=== PATIENT | female | born 1965 | race Caucasian/White ===

== ENCOUNTER 2025-10-11 07:43 | Emergency (ER) | payer MEDICAID, SELFPAY ==
--- OUTSIDE RECORDS SUMMARY | 2003-07-13 09:00 | XMS_ITS | Continuity of Care Document ---
Author Organization [facility] Address [address] [address] [place] [address] Phone Care Team Providers Care Refrigeration Mechanic Name Role Phone Unavailable Unavailable Unavailable Advance Directives Directive Yes / No Effective Date File Name No Information Encounters Encounter Description Practice Location Reason(s) For Visit Diagnoses Date Provider Providers Copied on Encounter [facility], [address] [address], [place], [place], [id number], [place] tel:[phone] [facility] No Information Jun-2 5200 3 No Information Referring Provider: Graham Mayorga MD, [address], [place], [address]. tel:[phone] Family History Family Member Type Diagnosis Age At Onset No Information Payers Payer name Insurance type Covered constitution party ID Authoriza tibelinda(s) [facility] [id number] Social History Type Description Quantity Date Captured Comments Sex Male Smoking Status No Information Chief Complaint And Reason For Visit No Information Reason For Referral Reason For Referral No Information History Of Present Illness Encounter Date Complaint History Of Prese nt Illness No Information Functional Status Date Functional Assessmen t No Information Instructions Date Instruction Additional Infor mation No Information Assessments Type Assessment Date No Information Patient Care Teams Name Effective Dates (start - stop) Status Members No Information
--- OUTSIDE RECORDS SUMMARY | 2025-10-11 07:46 | XMS_ITS | Clinical Summary ---
Author Organization [facility] Address [address] [place] [address] Care Team Providers Care Furniture Duster Name Role Phone Pcp, No Primary Care Provider Unavailabl e Allergies No known active allergies Medications MedicationSigDispense QuantityRefillsLast FilledStart DateEnd DateStatus buPROPion 300 mg Extended-Release tablet Take 300 mg by mouth once daily in the morning.05/02/2021ctive hydroCHLOROthiazide 12.5 mg capsule Take 12.5 mg by mouth once daily in the morning.06/06/2021ctive Magnesium Gluconate 30 mg (550 mg) tab Take 30 mg by mouth once daily if needed (occasion).Active vitamin D3/vitamin K2 (MK4) (K2 PLUS D3 ORAL) Take by mouth.Active semaglutide 1 mg/dose (4 mg/3 mL) subcutaneous pen Indications:Class 3 severe obesity with body mass index (BMI) of 40.0 to 44.9 in adult, unspecified obesity type, unspecified whether serious comorbidity present (HC)Inject 1 mg subcutaneous once weekly.5Active Active Problems ProblemNoted DateDiagnosed DateElevated blood pressure reading without diagnosis of ltqpuroguoia46/01/2025lass 3 severe obesity with body mass index (BMI) of 40.0 to 44.9 in adult01/17/2025 Encounters DateTypeDepartmentCare LalwAvmlsxxqibq07/22/2025 4:20 PM CSTAncillary Procedure [facility] [id number] [place] [phone] Tzsyygx6010/09/2025 1:55 PM CSTOffice Visit [facility] [id number] [place] [phone] Sandy Nelson, DEVAN Fall; Chest Injury (rib )10/09/2025Travelfrom Last 3 Months Immunizations ImmunizationAdministration DatesNext DueInfluenza, WMR80811/06/2020,08/24/2018, 09/05/2015Tdap12/06/2021,06/13/2011 Family History Medical HistoryRelationNameCommentsHypertensionBrother 1ScottNephrolithiasis Brother 2TroyFibromyalgiaDaughterCancerFatherbladderStrokeFatherCancerMaternal GrandfatherCancerMaternal GrandmotherDiabetesMotherHypertensionMother PancreatitisMotherStrokeMotherEmphysemaPaternal Nbkwxssgxsa33yJmggi attack Paternal Fpcswtmfilp89tOnci HealthSonRelationNameStatusCommentsBrother 1Scott AliveBrother 2TroyAliveDaughterAliveFatherDeceasedMaternal GrandfatherDeceased Maternal GrandmotherDeceasedMotherDeceasedPaternal GrandfatherDeceasedPaternal GrandmotherDeceasedSonAlive Social History Tobacco UseTypesPacks/DayYears UsedDateSmoking Tobacco: NeverSmokeless Tobacco: Never Tobacco Cessation:Counseling Given: Not Answered Alcohol UseStandard Drinks/WeekCommentsNot Currently0 (1 standard drink = 0.6 oz pure alcohol)2 per monthPHQ-2AnswerDate RecordedPHQ-2 TOTAL LUAVK271 Social ConnectionsAnswerDate RecordedDo you often feel lonely or isolated from those around you?Financial Resource StrainAnswerDate Recorded Difficulty of Paying Living Qnhdgihp618/01/2025Difficulty of Paying Living ExpensesNot on file01/17/2025Food InsecurityAnswerDate RecordedDo you worry your food will run out before you are able to buy more?Transportation NeedsAnswerDate RecordedDoes lack of transportation keep you from medical appointments?Does lack of transportation keep you from work, meetings or getting things that you need?Housing StabilityAnswerDate Recorded What is your housing situation today?UtilitiesAnswerDate RecordedDo you have trouble paying for utilities (for example, heat, electricity, water, phone)?CommentsNoSex and Gender InformationValueDate Recorded Sex Assigned at BirthNot on fileLegal RmgCatioi44/14/2013 6:30 AM CSTGender IdentityNot on fileSexual OrientationNot on fileOccupationIndustryJob Start Date Job End DateParalegalNot on fileNot on fileNot on file Last Filed Vital Signs Vital SignReadingTime TakenCommentsBlood Ombmawjx349/7710/09/2025 3:31 PM CAREER DEVELOPMENT ENGINEER Oulmg452110/09/2025 3:31 PM YFECyjqtyyjwqt79.6 ??C (97.8 ??F)10/09/2025 3:31 PM CSTRespiratory Rate--Oxygen Uianmxflav80%10/09/2025 3:31 PM CSTInhaled Oxygen Concentration--Rokryv391.6 kg (223 lb 14.4 oz)01/17/2025 9:14 AM LUYPgyyxg326.5 cm (5' 0.43)01/17/2025 9:14 AM CDTBody Mass Index43. 9:14 AM CDT Plan of Treatment Health MaintenanceDue DateLast DoneCommentsHIV for age 15-65011/14/1979Hepatitis C screening for age 18-7911/14/1982Pneumococcal series for age 50+ (1 of 1 - PCV)2014RSV vaccine for adults or (1 - Risk 50-74 years 1-dose series)2014Zoster (shingles) series for age 50+ (1 of 2)2014 Mammogram for age 40- (Verified in Care Everywhere or Patient Record)COVID-19 vaccine series ( - 2024- season)/11/2020, 01/24/2021, 12/27/2020Influenza Vaccine (#1)/, 08/24/2018, 09/05/2015BMI (ht and wt on same day) for age 18+Depression screening for age 12+, 01/17/2025Lipids for age 45-75 Tetanus /, 06/13/2011Colonoscopy through age 7506///, 01/17/2015 (Verified in Care Everywhere or Patient Record)Hepatitis B series for 19+Aged OutNo longer eligible based on patient's age to complete this topicPap test for age 21-65Discontinued Procedures Procedure NamePriorityDate/TimeAssociated DiagnosisCommentsXR RIBS BILATERAL AND CHEST MINIMUM 4 ACMJKIWNA23/22/2025 4:39 PM CAREER DEVELOPMENT ENGINEER Rib pain, bilateral anterior Accidental fall, initial encounter SCAN-QSEABGIFBAY05/16/2025 2:30 PM CDT LIPID PANEL W REFLEX MEASURED UXBRpljfbm93/01/2025 10:03 AM CDT Screening for cholesterol level from Last 3 Months or Most Recently Relevant to Health Maintenance Results * XR RIBS BILATERAL AND CHEST MINIMUM 4 VIEWS (10/09/2025 4:39 PM CAREER DEVELOPMENT ENGINEER)Anatomical RegionLateralityModalityRIBS, CHEST, RIBS L, RIBS RComputed Radiography Specimen (Source)Anatomical Location / LateralityCollection Method / Volume Collection TimeReceived Time10/09/2025 4:39 PM CAREER DEVELOPMENT ENGINEER Impressions 10/09/2025 4:53 PM CAREER DEVELOPMENT ENGINEER No acute, displaced rib fractures are evident. Heart size is normal. No pneumothorax. Some streaky curvilinear opacity in the left lung base most likely reflects some subsegmental atelectasis. There are degenerative changes in the spine. Narrative 10/09/2025 4:53 PM CAREER DEVELOPMENT ENGINEER For Patients: As a result of the Cures Act, medical imaging exams and procedure reports are released immediately into your electronic medical record. You may view this report before your referring provider. If you have questions, please contact your health care provider. EXAM: XR RIBS BILATERAL AND CHEST MINIMUM 4 VIEWS LOCATION: [facility] DATE: 10/09/2025 INDICATION: Rib Pain Accidental Fall, Initial Encounter COMPARISON: 05/14/2016. Procedure Note Anand Marx MD - 10/09/2025 For Patients: As a result of the Cures Act, medical imagingexams and procedure reports are released immediately into your electronicmedical record. You may view this report before your referring provider.If you have questions, please contact your health care provider. EXAM: XR RIBS BILATERAL AND CHEST MINIMUM 4 VIEWS LOCATION: [facility] DATE: 10/09/2025 INDICATION: Rib Pain Accidental Fall, Initial Encounter COMPARISON: 05/14/2016. IMPRESSION: No acute, displaced rib fractures are evident. Heart size is normal. No pneumothorax. Some streaky curvilinear opacity in the left lung base mostlikely reflects some subsegmental atelectasis. There are degenerativechanges in the spine. Authorizing ProviderResult TypeResult StatusRecristal Nelson NPGENERAL IMAGINGFinal Result * SCAN-COLONOSCOPY (04/03/2025 2:30 PM CDT) Narrative Procedure Note Rey Campa MD - 04/03/2025 1:48 PM CDT [facility] [address], [address], [place] [id number] Patient Name: Nunu Melgar Gender: Female Exam Date: 04/03/2025 Visit Number: [id number] Age: 59 Years Date of : 1965 Attending MD: Rey Campa MD Medical Record#: [id number] Procedure: Colonoscopy Indications: Colorectal cancer screening Referring MD: Referral Self Primary MD: Arun Sanders PAC Medications: Admitting Medications: 0.9% Normal Saline at O Intra Procedure Medications: Patient received monitored anesthesia care. No IV medications given during procedure. Complications: No immediate complications Procedure: An examination of the heart and lungs was performed and found to be within acceptable limits. . The patient was therefore deemed a reasonablecandidate for endoscopy and sedation. The risks and benefits of the procedure were explained to the patient.After obtaining informed consent, I passed the scope without difficultyvia the rectum to the ileum. The appendiceal orifice and ic valve wereidentified. The scope was retroflexed during the examination The qualityof the prep was excellent (Miralax/Gatorade/2 tablets Bisacodyl/MagnesiumCitrate). This was a complete examination throughout the entire colon. Findings: ?? Normal finding. Location - ileum. ?? There was a patch of inflammation around 35-40 cm in the sigmoid colon. Characterized by erythema and two aphthous ulcers; the inflammation wasalong one wall of the colon only. Biopsies obtained with cold forceps forhistology. ?? Diverticulosis. Location: - sigmoid. Description: moderate. Remainder of the exam is normal. Impression: Colon cancer screening Sigmoiditis MD impression comments: The patch of inflammation appeared most likeischemic colitis which can happen with bowel prep. Preliminary Plan: The patient and their physician will receive a copy of the pathologyreport as well as pathology-based recommendations for future screening orsurveillance. Pathology Results: A: COLON, SIGMOID, BIOPSY: 1. Colonic mucosa with ischemic injury, possibly related to bowelpreparation (see comment) 2. Negative for chronic and microscopic colitis COMMENTS A. The colon biopsy shows ischemic changes. The differential diagnosis of ischemic colon injury includes true ischemia (e.g. vascular disease, low perfusion states etc.), bacterial infections (Clostridium difficile,verotoxin- producing bacteria), coagulation disorders or less commonlydrugs ( control pills, Amphetamines, etc). This particular case appears to be associated with no colon symptomssuggesting the possibility of changes secondary to bowel preparation, asbowel preparation (particularly with high dose Bisacodyl) has been hasbeen associated with an ischemic pattern of injury (Manny Washburn, RAD Reina, Gastrointestinal Endoscopy January 2009, Vol. 69, Issue5, Page JE956). Please correlate closely with clinical findings. MICROSCOPIC A: Performed Electronically signed by: Leonel Garcia MD Interpreted at [facility], [address], [place] [address] Orders Instruction(s)/Education: Instruction/Education Timeframe Assessment Colon Cancer Prevention Z12.11 Colon Cancer Prevention Z12.11 Final Plan: Repeat colonoscopy in 10 years for screening. If you have signs orsymptoms of lower GI illness or a new diagnosis of colon cancer in animmediate family member, you should contact [facility] or your primary providerto discuss whether your next exam should be repeated sooner. We will attempt to contact you at appropriate intervals via U.S. mail. Wemay not be able to find you or contact you at that time, therefore youshould know that the responsibility for following our recommendation restswith you. If you don't hear from us at the time your procedure is due,please contact our office to schedule an appointment. If your contactinformation should change, please contact our office so that we can updateyour record. Additional Comments: Dear Nunu, your biopsies do show an ischemic injury appearance - thiscan happen in the setting of bowel preparation, rarely. If you areasymptomatic then it is nothing to worry about. If you do have anysymptoms please feel free to call. Otherwise repeat colonoscopy in 10years. _Electronically signed by: Rey Campa MD 04/03/2025 cc: Arun Sanders PAC Authorizing ProviderResult TypeResult StatusGregbobbi Campa MDOTHERFinal Result * (ABNORMAL) LIPID PANEL W REFLEX MEASURED LDL (01/17/2025 10:03 AM CDT) ComponentValueRef RangeTest MethodAnalysis TimePerformed AtPathologist SignatureCHOLESTEROL, LSVOQ539<200 mg/dLQuest SeaMicro-Parascale DaleHDL RRFJDEVUXEM34> OR = 50 mg/dLQuest Diagnostics-[facility] YqspGKKLWIALPYKJX89<150 mg/dLQuest Sea[facility] DaleLDL-ZSACOSBGSLE282(H)mg/dL (calc)[facility]-Parascale DaleComment: Reference range: <100 Desirable range <100 mg/dL for primary prevention; <70 mg/dL for patients with CHD or diabetic patients with > or = 2 CHD risk factors. LDL-C is now calculated using the Efren-Kendall calculation, which is a validated novel method providing better accuracy than the Friedewald equation in the estimation of LDL-C. Efren SS et al. EVA. 2013;310(19): 2306-7595 (http://education.Submitnet/faq/MAZ282) CHOL/HDLC RATIO3.0<5.0 (calc)[facility]-Jah BendereNON HDL EBLZRGLPSPJ971 <130 mg/dL (calc)[facility]-[place] NapoleoneComment: For patients with diabetes plus 1 major ASCVD risk factor, treating to a non-HDL-C goal of <100 mg/dL (LDL-C of <70 mg/dL) is considered a therapeutic option. Specimen (Source)Anatomical Location / LateralityCollection Method / Volume Collection TimeReceived TimeBloodBLOOD SPECIMEN / Ybhhhdl6201/17/2025 10:03 AM CDT 01/17/2025 10:04 AM CDT Narrative Authorizing ProviderResult TypeResult StatusRobbin [facility] PACHEMISTRYFinal ResultPerforming OrganizationAddressCity/State/ZIP CodePhone Number [facility] [address] [place] [address], [facility] [address] [place] [address] from Last 3 Months or Most Recently Relevant to Health Maintenance Insurance Care Teams Team MemberRelationshipSpecialtyStart DateEnd Date Pcp, No PCP - General12/27/14
[2025-10-11 07:51] VITALS: BP 163/83; PULSE 66; RESP 22; TEMP 36.3; O2SAT 98
--- NOTE | 2025-10-11 07:59 | CRLHL7_ITS ---
For Patients: As a result of the Cures Act, medical imaging exams and procedure reports are released immediately into your electronic medical record. You may view this report before your referring provider. If you have questions, please contact your health care provider. INDICATION: Chest pain. Fall. COMPARISON: None TECHNIQUE: PA and lateral views of the chest were acquired FINDINGS: TUBES AND LINES: None. HEART AND MEDIASTINUM: The heart size is normal. The mediastinal contour appears normal for patient age. LUNGS AND PLEURAL SPACES: The lungs appear normal.The pleural spaces are unremarkable. OSSEOUS STRUCTURES: Age-appropriate appearance. No acute focal finding. IMPRESSION: No evidence of active pulmonary disease. No visible acute posttraumatic findings by plain film. Dictated by Haim Rod MD @ 10/11/2025 8:25:35 AM (Electronically Signed)
--- NOTE | 2025-10-11 08:22 | ED_ITS ---
HPI - Chest Pain General Date Seen: 10/11/25 Chief Complaint: Chest Pain Stated Complaint: Fell, L chest pain feels bubbling and pain Time Seen by Provider: 10/11/25 08:22 Source: patient, family and RN notes reviewed Mode of arrival: ambulatory Limitations: no limitations History of Present Illness HPI narrative: Nunu is a very pleasant 59-year-old female previously healthy not currently on blood thinners who comes to the emergency room for chest pain difficulty breathing related to a fall on ThursdayOctober 07. Patient notes that she was in her house fell over a dog and fell onto the floor under her chest. She had pain in her anterior chest left anterior chest become gradually worse and today is associated with significant spasm discomfort and difficulty breathing. She even describes a ?bubbling? feeling which she tries to take a deep breath. She denies any hemoptysis, unusual cough. She denies any head injury neck pain abdominal pain vomiting at this time. She has not had fever or chills. She has not noticed any ecchymosis on her chest. She feels like her anterior chest or sternum as the point of most tenderness. Patient did have plain x-rays earlier in the week at Urgent Care which were reassuring. Related Data Previous Rx's ?Medication ?Instructions ?Recorded cyclobenzaprine 10 mg tablet 10 mg PO TID PRN muscle s pasm #30 10/11/25 tabs hydrocodone 5 mg-acetaminophen 325 1 tab PO Q4-6H PRN pain #10 tabs 10/11/25 mg tablet Allergies Allergy/AdvReac Type Severity Reaction Status Date / Time No Known Drug Allergies Allergy Verified 10/11/25 09:24 Review of Systems Status of ROS Reports: 10 or more systems reviewed and unremarkable except as noted in History and below Const Denies: fever or chills ENMT Denies: neck pain or nasal congestion Cardio Reports: chest pain and shortness of breath with exertion; Denies: lightheadedness Resp Reports: shortness of breath; Denies: cough GI Denies: abdominal pain, nausea or vomiting Denies: painful urination Musculo Denies: neck pain Integ/Breast Denies: redness, skin pain, skin tenderness or sores Neuro Denies: headache Exam Narrative Exam Narrative: Alert and oriented. Very guarded in movement. Shallow respirations. Head is atraumatic normocephalic. Face symmetrical. Speech mentation is normal. Heart with a regular rate and rhythm and decreased breath sounds in the left lower lung base. I do not auscultate crackles. Again patient very breathing very shallowly. Soft nontender. Specifically area of left upper quadrant. Lower extremities with 1+ peripheral edema moving extremities without difficulty. Const Vital Signs, click to edit/add: Vital Signs - 24 hr 10/11/25 07:51 Temperature 97.4 F L Pulse Rate [Right Pulse Oximeter] 66 Respiratory Rate 22 Blood Pressure [Right Forearm] 163/83 H Pulse Oximetry 98 Oxygen Delivery Method Room Air Documenting provider has reviewed patient's vital signs: yes Course Course ED Course: Differential diagnosis includes but is not limited to pulmonary contusion, sternal fracture, rib fracture, costochondral injury, pneumonia, pneumothorax. X-ray ordered by our staff earlier do not show any obvious fractures. Considering the level of discomfort, difficulty breathing I do think patient is at risk for occult fracture or sternal injury. Thus will order CT of the chest with IV contrast. Will place an IV give morphine 4 mg Zofran 4 mg for discomfort. In addition will check CBC and basic. If patient is noted to have sternal fracture will also at EKG. Reevaluation(s) Reevaluation #1: Patient noted continued pain after morphine and thus did give her Toradol 15 mg IV. It appears that a lot of her discomfort is coming from spasm and therefore will also give her Valium 5 mg IV. Vital Signs Vital signs: Initial Vital Signs Temperature 97.4 F L 10/11/25 07:51 Temperature Source Temporal Artery Scan 10/11/25 07:51 Pulse Rate 66 10/11/25 07:51 Pulse Rhythm Regular 10/11/25 07:51 Pulse Strength 3+ Normal 10/11/25 07:51 Respiratory Rate 22 10/11/25 07:51 Blood Pressure 163/83 H 10/11/25 07:51 Blood Pressure Mean 109 H 10/11/25 07:51 Blood Pressure Position Sitting 10/11/25 07:51 Pulse Oximetry 98 10/11/25 07:51 Oxygen Delivery Method Room Air 10/11/25 07:51 Vital Signs Temperature 97.4 F L 10/11/25 07:51 Pulse Rate 66 10/11/25 07:51 Respiratory Rate 22 10/11/25 07:51 Blood Pressure 163/83 H 10/11/25 07:51 Pulse Oximetry 98 10/11/25 07:51 Oxygen Delivery Method Room Air 10/11/25 07:51 Temperature 97.4 F L 10/11/25 07:51 Pulse Rate 66 10/11/25 07:51 Respiratory Rate 22 10/11/25 07:51 Blood Pressure 163/83 H 10/11/25 07:51 Pulse Oximetry 98 10/11/25 07:51 Oxygen Delivery Method Room Air 10/11/25 07:51 Medications Administered Medications: Discontinued Medications Generic Name Dose Route Start Last Admin Trade Name Lucie PRN Reason Stop Dose Admin Sodium Chloride 1,000 mls @ 1,000 mls/hr 10/11/25 08:29 10/11/25 08:52 0.9 % Sodium Chloride 1000 Ml IV 10/11/25 09:28 1,000 mls/hr .Q1H SUZI Administration Ketorolac Tromethamine 15 mg 10/11/25 09:24 10/11/25 09:35 Ketorolac 15 Mg/Ml Inj IVP 10/11/25 09:25 15 mg ONCE ONE Administration Morphine Sulfate 4 mg 10/11/25 08:28 10/11/25 08:51 Morphine 4 Mg/Ml Inj IVP 10/11/25 08:29 4 mg ONCE ONE Administration Ondansetron HCl 4 mg 10/11/25 08:28 10/11/25 08:51 Ondansetron 2 Mg/Ml Inj IVP 10/11/25 08:29 4 mg ONCE ONE Administration MDM - Chest Pain MDM Narrative Medical decision making narrative: 1. Single rib fracture-patient is noted to have a subtle fracture of the 7th anterior rib. No underlying pulmonary contusion or pneumothorax. Patient received morphine and Toradol in the ED. I think she is mostly having muscular spasm so the will treat now with Valium 5 mg IV. Patient will be discharged home with suggestion for continued use of ibuprofen. Will use Flexeril 10 mg p.o. t.i.d. for spasm. Will also give her a few tablets of [place] 5/325 1-2 q.4- 6 hours p.r.n. pain 10. With no refills from instant meds. Recommend deep breathing as much as possible. Return for fever cough chills and as needed. 2. Disposition-home at this time. Seek medical attention for worsening symptoms. Medical Records Data Attestation: I reviewed the patient's medical records. Lab Data Attestation: I reviewed the patient's lab results. Labs: Lab Results 10/11/25 10/11/25 10/11/25 Range/Units 08:48 08:49 09:25 WBC 5.02 (4.50-11.00) K/uL RBC 4.59 (4.00-5.20) m/uL Hgb 13.1 (12.0-16.0) gm/dL Hct 40.2 (33.0-51.0) % MCV 88 (80-100) fL MCH 29 (26-34) pg MCHC 33 (32-36) gm/dL RDW Coeff of Vasile 12.5 (11.5-15.5) % Plt Count 224 (140-440) K/uL Neut % (Auto) 59.7 (42.0-72.0) % Lymph % (Auto) 25.3 (20-44) % [place] % (Auto) 7.4 (0.0-11.0) % Eos % (Auto) 6.6 (0.0-7.0) % Baso % (Auto) 0.8 (0.0-3.0) % Neut # (Auto) 3.00 (1.7-7.0) K/uL Lymph # (Auto) 1.27 (0.90-2.90) K/uL [place] # (Auto) 0.40 (0.00-0.90) K/UL Eos # (Auto) 0.33 (0.00-0.50) K/uL Baso # (Auto) 0.04 (0.00-0.30) K/uL Abs Immat Gran (auto) 0.01 (0.00-0.30) K/uL Imm/Tot Granulo (auto) 0.2 % Urine Color Yellow (Yellow) Urine Appearance Clear (Clear) Urine pH 6.0 (5.0-8.5) Ur Specific [place] 1.020 (1.000-1.030) Urine Protein Negative (Negative) Urine Glucose (UA) Negative (Negative) Urine Ketones Negative (Negative) Urine Blood Negative (Negative) Urine Nitrite Negative (Negative) Urine Bilirubin Negative (Negative) Urine Urobilinogen 0.2 (0.2-1.0) Ur Leukocyte Esterase Negative (Negative) Urine RBC 0-2 (0-2) Urine WBC 0-2 (0-5) Ur Squamous Epith Cells None (None-Few) Urine Bacteria None (None) POC Creatinine 0.6 (0.6-1.3) mg/dl Imaging Data CT scan - chest: Attestation: I have reviewed the pertinent imaging results. Radiologist's impression: Please note that all CT scans at this facility use dose modulation, iterative reconstruction, and/or weight-based dosing when appropriate to reduce radiation dose to as low as reasonably achievable. FINDINGS: : HEART and MEDIASTINUM: The heart size is normal. There is no mediastinal or hilar adenopathy or mass. There is no pericardial effusion.No indication of mediastinal vascular injury LUNGS and PLEURAL SPACES: Trace bibasilar atelectasis.There is no pleural effusion, pneumothorax or pleural based mass. VISUALIZED UPPER ABDOMEN: The limited visualized upper abdominal structures appear normal. OSSEOUS STRUCTURES: No sternal or spine fracture. Extremely subtle nondisplaced fracture of the anterolateral left aspect of the 7th rib. See series 3, image 97. TUBES and LINES: None. IMPRESSION: 1. Heart size normal. No mediastinal or hilar adenopathy or mass. No mediastinal vascular injury. 2. Trace bibasilar atelectasis. No pleural effusion or pneumothorax. 3. No sternal or spine fracture. Extremely subtle nondisplaced fracture of the anterolateral left aspect of the left 7th rib. See series 3, image 97. 4. Upper abdomen overall unremarkable Chest x-ray: Attestation: I have reviewed the pertinent imaging results. My impression: I do not note any acute rib fractures. No evidence of underlying pneumothorax. Radiologist's impression: TUBES AND LINES: None. HEART AND MEDIASTINUM: The heart size is normal. The mediastinal contour appears normal for patient age. LUNGS AND PLEURAL SPACES: The lungs appear normal.The pleural spaces are unremarkable. OSSEOUS STRUCTURES: Age-appropriate appearance. No acute focal finding. IMPRESSION: No evidence of active pulmonary disease. No visible acute posttraumatic findings by plain film. Discharge Plan Discharge Clinical Impression: Fracture of rib Qualifiers: Encounter type: initial encounter Rib fracture type: single rib Fracture type: closed Laterality: left Qualified Code(s): S22.32XA - Fracture of one rib, left side, initial encounter for closed fracture Patient Disposition: Home, Self-Care Condition: Improved Additional Instructions: For discomfort: 1. Continue to use Aleve or ibuprofen as needed for rib pain. 2. For pain not relieved by 1., you may use [place] a combination medication of Tylenol plus the narcotic hydrocodone sparingly. 3. For spasm use Flexeril as directed. Both 2. And 3. Should not be used with any other sedating medication or alcohol. Try to do deep breathing exercises at the top of every hour while awake. Use a firm pillow against area of discomfort if you feel like you need to cough or breathe deep. We call this ?splinting?. Return for fever, coughing up blood, worsening symptoms and as needed. We did not have [place] in our MyTime machine so your prescriptions were sent to the [facility]. Prescriptions: New cyclobenzaprine 10 mg tablet 10 mg PO TID PRN (Reason: muscle spasm) Qty: 30 0RF hydrocodone-acetaminophen 5-325 mg tablet 1 tab PO Q4-6H PRN (Reason: pain) Qty: 10 0RF Follow Up/Referrals: Provider,Not a Local [Primary Care Provider, Family Practice] Stand Alone Forms: [employer] Info Instructions
--- NOTE | 2025-10-11 08:28 | CRLHL7_ITS ---
For Patients: As a result of the Century Cures Act, medical imaging exams and procedure reports are released immediately into your electronic medical record. You may view this report before your referring provider. If you have questions, please contact your health care provider. INDICATION: Trauma 4 days prior with pain in sternum and left medial anterior chest pain COMPARISON: None TECHNIQUE: : CT examination of the chest was performed following the uneventful intravenous administration of 75 cc of Isovue 370.Thin axial sections were obtained from the thoracic inlet through the lung bases. Please note that all CT scans at this facility use dose modulation, iterative reconstruction, and/or weight-based dosing when appropriate to reduce radiation dose to as low as reasonably achievable. FINDINGS: : HEART and MEDIASTINUM: The heart size is normal. There is no mediastinal or hilar adenopathy or mass. There is no pericardial effusion.No indication of mediastinal vascular injury LUNGS and PLEURAL SPACES: Trace bibasilar atelectasis.There is no pleural effusion, pneumothorax or pleural based mass. VISUALIZED UPPER ABDOMEN: The limited visualized upper abdominal structures appear normal. OSSEOUS STRUCTURES: No sternal or spine fracture. Extremely subtle nondisplaced fracture of the anterolateral left aspect of the 7th rib. See series 3, image 97. TUBES and LINES: None. IMPRESSION: 1. Heart size normal. No mediastinal or hilar adenopathy or mass. No mediastinal vascular injury. 2. Trace bibasilar atelectasis. No pleural effusion or pneumothorax. 3. No sternal or spine fracture. Extremely subtle nondisplaced fracture of the anterolateral left aspect of the left 7th rib. See series 3, image 97. 4. Upper abdomen overall unremarkable Please note that all CT scans at this facility use dose modulation, iterative reconstruction, and/or weight-based dosing when appropriate to reduce radiation dose to as low as reasonably achievable. Dictated by Haim Rod MD @ 10/11/2025 9:30:44 AM (Electronically Signed)
[2025-10-11 08:49] LABS: Creatinine, Point-of-Care* 0.6 mg/dl (0.6-1.3)
[2025-10-11] MEDS: ONDANSETRON 2 MG/ML inj 4 MG IVP (08:51)
[2025-10-11] MEDS: MORPHINE 4 MG/ML INJ IVP (08:51)
[2025-10-11 08:52] LABS: Hematocrit* 40.2 % (33.0-51.0); Hemoglobin* 13.1 gm/dL (12.0-16.0); Immature Granulocytes Abs Auto 0.01 K/uL (0.00-0.30); Immature Granulocytes Pct Auto 0.2 %; Lymphocytes Absolute Auto 1.27 K/uL (0.90-2.90); Mean Corpuscular HGB Conc 33 gm/dL (32-36); Mean Corpuscular Hemoglobin 29 pg (26-34); Mean Corpuscular Volume 88 fL (80-100); RDW Coefficient of Variation % 12.5 % (11.5-15.5); Red Blood Count* 4.59 m/uL (4.00-5.20); White Blood Count* 5.02 K/uL (4.50-11.00)
[2025-10-11 09:02] LABS: Slide Review Reflex No
[2025-10-11 09:54] LABS: Appearance Urine Clear (Clear)
[2025-10-11] MEDS: diazePAM 5 MG/ML inj IV (10:08)
[2025-10-11 10:10] LABS: Chloride* 105 mmol/L (96-114); Potassium* 4.0 mmol/L (3.6-5.1); Sodium* 137 mmol/L (135-149)
[2025-10-11 10:13] LABS: Anion Gap 6 mEq/L (7-15); Blood Urea Nitrogen* 16 mg/dL (7-30); Calcium* 8.9 mg/dL (8.4-10.6); Carbon Dioxide* 26 mmol/L (20-32); Creatinine* 0.6 mg/dL (0.5-1.5); Estimated Glomerular Filt Rate 103 ml/min; Glucose* 100 mg/dL (60-115)
[2025-10-11 10:31] VITALS: BP 133/64; PULSE 64; RESP 12; O2SAT 98
== END 2025-10-11 10:51 | disposition home or self-care (01) ==
PROVIDERS: Emergency Provider Family Medicine
DX: S22.32XA Fracture of one rib, left side, initial encounter for closed fracture (principal); W18.09XA Striking against other object with subsequent fall, initial encounter; Y92.009 Unspecified place in unspecified non-institutional (private) residence as the place of occurrence of the external cause
CPT/HCPCS: 36415; 71046; 71260; 80048; 81001; 82565; 85025; 96361; 96374; 96375; 99284; 99285; J1885; J2270; J2405; J3360; J7030; Q9967